=== PATIENT | female | born 1980 | race Caucasian/White ===

== ENCOUNTER → 2019-10-09 | Outpatient (CLI) | payer OTHER ==
--- NOTE | 2019-10-09 10:24 | REP ---
REASON: Venous insufficiency. TECHNIQUE: Multiple ultrasonographic images of the deep venous structures of the bilateral thighs were obtained from the common femoral vein to the popliteal vein along with Doppler interrogation and color flow Doppler images. FINDINGS: There is no abnormal echogenic material seen within any of the visualized deep venous structures that would suggest acute thrombosis. Coaptation is unremarkable throughout. Doppler interrogation shows an expected response to respiratory variability and augmentation. The color flow images show what appears to be a normal vascular pattern throughout. IMPRESSION: There is no ultrasonographic evidence of deep venous thrombosis involving any of the visualized deep venous structures of the bilateral thigh, as described above. On the right: No reflux was seen in the common femoral vein and an anterior accessory greater saphenous vein was not present. No reflux was seen in the greater saphenous vein at the saphenofemoral junction, the AP dimension of which measures 5.3 mm. No reflux is seen in the greater saphenous vein at the mid thigh the AP dimension of which measures 2.7 mm. No reflux was seen in the greater saphenous vein at the knee, the AP dimension of which measures 2.7 mm. No reflux was seen in any portion of the superficial femoral vein or popliteal vein. Reflux was seen in the lesser saphenous vein of 6.9 seconds, the AP dimension of which measures 4.2 mm. On the left: No reflux was seen in any of the deep venous system imaged in the same fashion as those imaged on the right. The AP dimension of the greater saphenous vein at the saphenofemoral junction is 2.8 mm. At the thigh, the AP dimension is 3.5 mm and at the knee, the AP dimension is 1.9 mm. The AP dimension of the lesser saphenous vein is 4.1 mm. No collateral circulation was identifiable. Electronically Signed by Angus Sandra DO 10/09/2019 11:26 A
== END ==
LOC: M RAD 07:49
PROVIDERS: ATTEND Physician Assistant
DX: I87.2 Venous insufficiency (chronic) (peripheral) (principal)